=== PATIENT | female | born 2000 | race Caucasian/White ===

== ENCOUNTER 2024-06-30 08:00 | Outpatient (CLI) | payer OTHER ==
[2024-06-30 18:41] LABS: MICROALBUMIN,URINE 16.6 mg/dL
[2024-06-30 18:51] LABS: CREATININE,URINE 399.1 mg/dL; MICROALBUM/CREATININE RATIO,UR 41.6 ug/mg (<30.0)
== END 2024-06-30 23:59 | disposition home or self-care (01) ==
LOC: LAB.WCP 08:00
PROVIDERS: ATTEND Nurse Practitioner Family
DX: R80.9 Proteinuria, unspecified (principal); E66.9 Obesity, unspecified; Z12.4 Encounter for screening for malignant neoplasm of cervix; Z97.5 Presence of (intrauterine) contraceptive device; R10.2 Pelvic and perineal pain
CPT/HCPCS: 82043; 82570

== ENCOUNTER 2024-07-13 21:07 | Outpatient (CLI) | payer OTHER ==
--- NOTE | 2024-07-14 10:42 | Ultrasound Report ---
PROCEDURE: Pelvic w/Transvaginal INDICATIONS: PELVIC PAIN TECHNIQUE: Real-time scanning was performed of the pelvic organs, with image documentation. Additional endovagi nal scanning was necessary due to incomplete visualization of the adnexal and endometrial structures by transabdominal scanning. COMPARISON: None. FINDINGS: Uterus: Uterus is anteverted and normal in size at 7 x 3 x 4.6 cm. The myometrium is homogeneous. The endometrium measures 5 mm in combined thickness. IUD within the endometrium, and appropriate in position. Ovaries: The right ovary measures 3.6 x 2.2 x 4.1 cm, with a calculated ovarian volume of 17 cc. Th e left ovary measures 5.5 x 3.2 x 4.6 cm, with a calculated ovarian volume of 41 cc. The ovaries hav e a normal sonographic appearance. Less than 12 follicles can be seen in each ovary. No adnexal mas ses are seen. Left ovarian lesion with probable daughter follicles measuring 3.7 x 3.4 x 2.4 cm. Left ovarian echogenic lesion measuring 1.9 x 2.3 x 2.2 cm. Other: No pathologic free abdominal or pelvic fluid. IMPRESSION: Left ovarian echogenic lesion measuring 1.9 x 2.3 x 2.2 cm. Findings probably represents a degenerati ng corpus luteum. Left ovarian lesion with probable daughter follicles measuring 3.7 x 3.4 x 2.4 cm. Given pelvic pain, recommend follow-up in 6-12 weeks per [facility] guidelines. Reviewed by: Alan Grant MD on 07/14/2024 10:41 AM PDT Approved by: Alan Grant MD on 07/14/2024 10:41 AM PDT Station ID: [id number]
== END 2024-07-13 21:08 | disposition home or self-care (01) ==
LOC: DI 21:07
PROVIDERS: ATTEND Nurse Practitioner Family
DX: R10.2 Pelvic and perineal pain (principal); N83.8 Other noninflammatory disorders of ovary, fallopian tube and broad ligament; Z97.5 Presence of (intrauterine) contraceptive device